=== PATIENT | male | born 1985 | race Caucasian/White ===

== ENCOUNTER 2020-09-25 13:22 | Emergency (ER) | payer OTHER ==
--- NOTE | 2020-09-25 13:49 | ED ---
Abdominal Pain HPI - General Chief Complaint: Abdominal Pain Stated Complaint: ABD pain Time Seen by Provider: 09/25/20 13:47 Source: patient Mode of arrival: ambulatory Limitations: no limitations - History of Present Illness Initial Comments: 35-year-old male presenting to the emergency department with chief complaint of abdominal pain or hernia. Patient states she has been dealing with this issue for for approximately one year. He does report an occasional protrusion in the right upper quadrant region, especially whenever he is straining. For the past 2-3 days he reports tightness in the right upper quadrant region and he states that in a protrusion might occur. Patient reports he contacted 's office and is scheduled to have an appointment on Monday with . Patient denies nausea vomiting diarrhea. Denies any constipation or changes in his stool. Denies a night sweats fevers or chills. Denies any testicular pain, penile discharge, testicular swelling. He does not drink alcohol. Does have history of GERD. States he drinks close to one pot of coffee daily. - Related Data Home Medications Medication Instructions Recorded Confirmed Albuterol Inhaler (Mhu) [Ventolin 1 - 2 puff INHALATION Q6HR PRN 01/09/16 01/09/16 Hfa Inhaler] Previous Rx's Medication Instructions Recorded Albuterol Nebulized [Ventolin 2.5 mg INHALATION Q4H PRN 10 Days 01/09/16 Nebulized] nebu Ondansetron Odt [Zofran ODT] 4 mg PO Q8HR PRN #10 tab 01/09/16 Oseltamivir [Tamiflu] 75 mg PO Q12HR 5 Days cap 01/09/16 Omeprazole [PriLOSEC] 20 mg PO AC-BRKFST #30 cap 09/25/20 Allergies Allergy/AdvReac Type Severity Reaction Status Date / Time No Known Allergies Allergy Verified 09/25/20 13:38 Review of Systems ROS Statement: Those systems with pertinent positive or pertinent negative responses have been documented in the HPI. ROS Other: All systems not noted in ROS Statement are negative. Past Medical History Past Medical History: Asthma History of Any Multi-Drug Resistant Organisms: None Reported Past Surgical History: Orthopedic Surgery Additional Past Surgical History / Comment(s): Right hand surg Past Psychological History: No Psychological Hx Reported Smoking Status: Never smoker Past Alcohol Use History: None Reported Past Drug Use History: Marijuana General Exam Limitations: no limitations General appearance: alert, in no apparent distress Head exam: Present: atraumatic, normocephalic, normal inspection Eye exam: Present: normal appearance, PERRL, EOMI Pupils: Present: normal accommodation ENT exam: Present: normal exam, normal oropharynx, mucous membranes moist, TM's normal bilaterally, normal external ear exam Neck exam: Present: normal inspection, full ROM. Absent: tenderness Respiratory exam: Present: normal lung sounds bilaterally. Absent: respiratory distress, wheezes, rales Cardiovascular Exam: Present: regular rate, normal rhythm, normal heart sounds GI/Abdominal exam: Present: soft, tenderness (Epigastric and right upper quadra nt abdominal tenderness. Negative Ordaz sign.). Absent: distended, guarding, rebound, rigid exam: Present: normal inspection. Absent: testicular tenderness, urethral di scharge, scrotal swelling, vertical testicular lie, circumcision Extremities exam: Present: normal inspection, full ROM, normal capillary refill. Absent: tenderness, pedal edema, joint swelling, calf tenderness Back exam: Present: normal inspection, full ROM. Absent: tenderness, CVA tenderness (R), CVA tenderness (L), muscle spasm, paraspinal tenderness, vertebral tenderness Neurological exam: Present: alert, oriented X3, CN II-XII intact, normal gait Psychiatric exam: Present: normal affect, normal mood. Absent: anxious, manic Skin exam: Present: warm, dry, intact, normal color Course Vital Signs 09/25/20 09/25/20 09/25/20 13:34 15:11 16:10 Temperature 98.3 F 98.2 F Pulse Rate 85 81 72 Respiratory 16 20 20 Rate Blood Pressure 148/84 115/77 118/76 O2 Sat by Pulse 98 98 Oximetry Medical Decision Making - Medical Decision Making Patient a 35-year-old male presenting to the emergency department with a chief complaint of abdominal pain. On physical examination, he does have right upper quadrant and epigastric tenderness to palpation, although it is mild. No signs of protrusion. examination is unremarkable. Patient could not give a urine sample. CBC CMP is unremarkable. CT of the abdomen and pelvis reveals no ventral abdominal wall hernia. There is some thickening along the gastric fundus and the proximal body which might suggest distention or gastritis. There is also some circumferential bladder thickening that could suggest cystitis. Clinically this does not correlate concerning the patient is not complaining of any urinary symptoms. I suspect that the likely gastritis secondary to the patient's feeling of tightness in the abdomen. He also has history of GERD and is drinking almost one pot of coffee daily. Patient given Protonix in the ED. We discharged with a 30 day course of omeprazole. He has an appointment with on Monday. Strict return parameters were thoroughly discussed with patient was understanding and agreeable. Case discussed with physician. - Lab Data Result diagrams: 09/25/20 14:36 09/25/20 14:36 Lab Results 09/25/20 09/25/20 09/25/20 Range/Units 14:36 14:36 14:36 WBC 8.2 (3.8-10.6) k/uL RBC 4.97 (4.30-5.90) m/uL Hgb 15.6 (13.0-17.5) gm/dL Hct 45.8 (39.0-53.0) % MCV 92.1 (80.0-100.0) fL MCH 31.3 (25.0-35.0) pg MCHC 33.9 (31.0-37.0) g/dL RDW 11.7 (11.5-15.5) % Plt Count 195 (150-450) k/uL MPV 7.2 Neutrophils % 67 % Lymphocytes % 24 % Monocytes % 5 % Eosinophils % 1 % Basophils % 1 % Neutrophils # 5.5 (1.3-7.7) k/uL Lymphocytes # 2.0 (1.0-4.8) k/uL Monocytes # 0.4 (0-1.0) k/uL Eosinophils # 0.1 (0-0.7) k/uL Basophils # 0.1 (0-0.2) k/uL Sodium 139 (137-145) mmol/L Potassium 4.0 (3.5-5.1) mmol/L Chloride 102 (98-107) mmol/L Carbon Dioxide 29 (22-30) mmol/L Anion Gap 8 mmol/L BUN 17 (9-20) mg/dL Creatinine 0.86 (0.66-1.25) mg/dL Est GFR (CKD-EPI)AfAm >90 (>60 ml/min/1.73 sqM) Est GFR (CKD-EPI)NonAf >90 (>60 ml/min/1.73 sqM) Glucose 111 H (74-99) mg/dL Plasma Lactic Acid Brennen 0.8 (0.7-2.0) mmol/L Calcium 9.9 (8.4-10.2) mg/dL Total Bilirubin 2.2 H (0.2-1.3) mg/dL AST 41 (17-59) U/L ALT 24 (4-49) U/L Alkaline Phosphatase 51 (38-126) U/L Total Protein 8.0 (6.3-8.2) g/dL Albumin 5.0 (3.5-5.0) g/dL Disposition Clinical Impression: Abdominal pain, Gastritis Disposition: HOME SELF-CARE Condition: Stable Instructions (If sedation given, give patient instructions): Abdominal Pain (ED) Additional Instructions: Follow with her primary care physician. Return to emergency department if symptoms worsen. Take prescribed medication as directed. Stop drinking or eating acidic foods or drinks. Prescriptions: Omeprazole [PriLOSEC] 20 mg PO -BRKFST #30 cap Is patient prescribed a controlled substance at d/c from ED?: No Referrals: None,Stated [Primary Care Provider] - 1-2 days Time of Disposition: 15:44
[2020-09-25 14:55] LABS: Basophils # (A) 0.1 k/uL (0-0.2); Basophils % (A) 1 %; Eosinophils # (A) 0.1 k/uL (0-0.7); Eosinophils % (A) 1 %; HCT 45.8 % (39.0-53.0); HGB 15.6 gm/dL (13.0-17.5); Lymphocytes % (A) 24 %; MCH 31.3 pg (25.0-35.0); MCHC 33.9 g/dL (31.0-37.0); MCV 92.1 fL (80.0-100.0); Mean Platelet Volume 7.2; Monocytes # (A) 0.4 k/uL (0-1.0); Monocytes % (A) 5 %; Neutrophils # (A) 5.5 k/uL (1.3-7.7); Neutrophils % (A) 67 %; Platelet Count 195 k/uL (150-450); RBC 4.97 m/uL (4.30-5.90); RDW 11.7 % (11.5-15.5); WBC 8.2 k/uL (3.8-10.6)
[2020-09-25 15:02] LABS: ALT 24 U/L (4-49); AST 41 U/L (17-59); African American GFR (CKD) >90 (>60 ml/min/1.73 sqM); Alkaline Phosphatase 51 U/L (38-126); Anion Gap 8 mmol/L; Blood Urea Nitrogen 17 mg/dL (9-20); Calcium 9.9 mg/dL (8.4-10.2); Carbon Dioxide 29 mmol/L (22-30); Chloride 102 mmol/L (98-107); Glucose 111 mg/dL (74-99); Non-African American GFR(CKD) >90 (>60 ml/min/1.73 sqM); Sodium 139 mmol/L (137-145); Total Bilirubin 2.2 mg/dL (0.2-1.3)
[2020-09-25 15:21] VITALS: RESP 20
--- NOTE | 2020-09-25 15:21 | CT ---
EXAMINATION TYPE: CT abdomen pelvis w con DATE OF EXAM: 09/25/2020 COMPARISON: NONE HISTORY: 35-year-old male RUQ discomfort with occasional protrusion. Rule out hernia. TECHNIQUE: Contiguous axial scanning of the abdomen and pelvis following administration of 100 ml Iso michelle 300 IV contrast. Delayed images through the kidneys and coronal/sagittal reconstructions perform ed. CT DLP: 692.3 mGycm Automated exposure control for dose reduction was used. FINDINGS: Heart normal size without pericardial effusion. Lung bases clear without pleural effusion. No focal liver lesion or biliary ductal dilatation. Portal venous system is patent. Gallbladder, adrenal glands, kidneys, spleen, pancreas appear within normal limits. Focal thickening within the gastric fundus and proximal body of the stomach. No dilated small bowel, free fluid, free air. No mesenteric or retroperitoneal lymphadenopathy. Normal appendix. No significant stool burden. No pericolonic inflammatory change. Mild to moderate circumferential bladder wall thickening. Multiple pelvic phleboliths. Lymph nodes wi thin the left greater than right inguinal regions are borderline in size measuring up to 1.4 cm short axis, refer to coronal image 24. No abnormal fluid collection in the pelvis. No ventral abdominal wall hernia or rectus diastases is identified. Bones: Severe femoral head neck junction osseous excrescences. There is S1 lumbarization. L5 bilatera l pars defects with grade 2 anterolisthesis at L5-S1. Posterior disc bulge at L3-L4 impressing on the ventral thecal sac. IMPRESSION: 1. NO VENTRAL ABDOMINAL WALL HERNIA OR RECTUS DIASTASES IDENTIFIED. 2. SOME FOLD THICKENING ALONG THE GASTRIC FUNDUS AND PROXIMAL BODY MAY RELATE TO UNDER DISTENTION OR GASTRITIS. CLINICALLY CORRELATE. 3. ADDITIONAL CIRCUMFERENTIAL BLADDER WALL THICKENING. CORRELATE TO EXCLUDE CYSTITIS. 4. 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
[2020-09-25] MEDS ORDERED: PANTOPRAZOLE 40 MG/10 ML VIAL IVP STA (15:41)
[2020-09-25 16:21] VITALS: BP 118/76; PULSE 72; TEMP 98.2
== END 2020-09-25 16:10 | disposition home or self-care (01) ==
LOC: EC 13:22
DX: K29.70 Gastritis, unspecified, without bleeding (principal); J45.909 Unspecified asthma, uncomplicated; Z79.51 Long term (current) use of inhaled steroids
CPT/HCPCS: 36415; 80053; 83605; 85025; 74177; 99284; 96374; C9113; Q9967

== ENCOUNTER → 2020-10-07 | Outpatient (CLI) | payer OTHER ==
--- NOTE | 2020-10-07 16:35 | NM ---
EXAMINATION TYPE: NM hepatobiliary w CCK DATE OF EXAM: 10/07/2020 COMPARISON: CT abdomen pelvis 09/25/2020 HISTORY: Biliary dyskinesia TECHNIQUE: After the intravenous administration of 4.67 mCi Tc 99m Mebrofenin hepatobiliary scintigra phy is performed. Immediate images post injection. FINDINGS: There is satisfactory initial accumulation and clearance of tracer by the liver. The gallbladder is visualized within 8 minutes. The small bowel activity is not seen within the first hour, however is seen after administration of CCK. At one hour CCK was administered, patient was injected with 1.6 mcg of Kinevac, and gallbladder ejection fraction is calculated at 58%, in the normal range. Therefore there is no scintigraphic evidence of cystic or common bile duct obstruction, acute or chronic cholec ystitis, or biliary dyskinesia. IMPRESSION: Exam is within normal limits.
== END | disposition home or self-care (01) ==
LOC: RADNMMAIN 06:47
PROVIDERS: ATTEND Surgery
DX: K82.8 Other specified diseases of gallbladder (principal)
CPT/HCPCS: 78227; A9537; J2805